=== PATIENT | male | born 2000 | race Two or more races ===

== ENCOUNTER 2019-10-26 13:43 | Emergency (ER) | payer SELFPAY ==
[2019-10-26 13:44] VITALS: BP 118/67; PULSE 70; RESP 14; TEMP 36.3; O2SAT 98; BMI 21.8
--- NOTE | 2019-10-26 14:45 | ED.DCSUM_ITS ---
- ER Visit Summary Date of Service: 10/26/19 Chief Complaint: Depression History of Present Illness: The patient is a 19 M who presents with depression that has been waxing and waning since yesterday. Patient states he was having some suicidal thoughts yesterday but currently denies any suicidal thoughts. Patient states he thought about taking pills. Patient states he does not have any pills to take and has no access to any medications. Patient denies any visual or auditory hallucinations. Patient states his symptoms are worse when he is alone. Physical Examination: Vital signs are stable. Patient is afebrile. Patient is in no acute distress. Oral mucosa is pink and moist. Neck is supple. Trachea is midline. There is no JVD. Heart was regular rate and rhythm. Lungs are clear and equal bilaterally. Abdomen is soft. Bowel sounds are normal. There is no tenderness. Cranial nerves II through XII are intact. There are no focal motor or sensory deficits noted. Extremities are intact. There is no calf tenderness or edema. Patient denies any suicidal or homicidal ideations currently. Patient denies any visual or auditory hallucinations. Emergency Department Course and Treatment: Case was discussed with social work. She will attempt to have the patient follow-up as an outpatient. She was able to make arrangements for the patient to follow-up as an outpatient. Patient understands and is agreeable with this. All questions were answered. Disposition: Discharge home Impression: Depression This note was generated with [employer] dictation software. It may contain incorrect words, spelling, and punctuation that were not noted in review of the chart prior to signing ED Disposition - Plan for ED Patient: Disposition: Home or Assisted Living Diagnosis: Depression, Anxiety Instructions: ED Depression, ED Stress React Referrals: [facility] Doctor,Out of [NON-STAFF] - Keep Ismael appointment
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
[2019-10-26 16:02] VITALS: BP 118/75; PULSE 63; RESP 15; O2SAT 99
== END 2019-10-26 16:15 | disposition home or self-care (01) ==
PROVIDERS: Emergency Provider Emergency Medicine
DX: F32.9 Major depressive disorder, single episode, unspecified (principal); F41.9 Anxiety disorder, unspecified; J45.909 Unspecified asthma, uncomplicated; I10 Essential (primary) hypertension
CPT/HCPCS: 99283